=== PATIENT | female | born 1955 | race Caucasian/White ===

== ENCOUNTER 2019-10-30 09:57 | Day surgery (SDC) | payer BC ==
[~2019-10-30 09:57] MED LIST: Buffered Lidocaine 1% SYRIN* 1 ML/SYRINGE INTRADERM ONE; Lactated Ringers 1000 ML Bag* 1,000 ML IV SCH
[2019-10-30] MEDS ORDERED: Buffered Lidocaine 1% SYRIN* 1 ML/SYRINGE INTRADERM ONE (10:22)
[2019-10-30] MEDS ORDERED: ceFAZolin 2 GM PREMIX in ORs 2 GM/50 ML BAG ONE (10:22)
[2019-10-30] MEDS ORDERED: fentaNYL* 50 MCG/ML 5 ML VIAL (250 MCG VIAL) ONE (10:27)
[2019-10-30] MEDS ORDERED: Acetaminophen IV 1GM/100ML * 0 ML ONE (10:27)
[2019-10-30] MEDS ORDERED: Propofol* 10 MG/ML 20 ML BTL ONE (10:27)
[2019-10-30] MEDS ORDERED: Lidocaine 2% PF * 5 ML VIAL ONE (10:27)
[2019-10-30] MEDS ORDERED: Succinylcholine* 20 MG/ML 10 ML VIAL ONE (10:27)
[2019-10-30] MEDS ORDERED: Rocuronium* 10 MG/ML VIAL ONE (10:28)
[2019-10-30] MEDS ORDERED: Midazolam* 1 MG/ML 2 ML VIAL (2 MG) ONE (10:28)
[2019-10-30] MEDS ORDERED: Lidocaine 1% INJ* 10 MG/ML 30 ML SDV ONE (10:58)
[2019-10-30] MEDS ORDERED: Bupivacaine 0.25% EPI 200,000* 30 ML SDV ONE (10:58)
[2019-10-30] MEDS ORDERED: Ondansetron INJ* 2 MG/ML VIAL ONE (12:01)
[2019-10-30] MEDS ORDERED: Glycopyrrolate IV* 0.2 MG/ML 1 ML VIAL ONE (12:01)
[2019-10-30] MEDS ORDERED: Dexamethasone IV* 4 MG/ML 1 ML (4 MG) ONE (12:01)
[2019-10-30] MEDS ORDERED: Ketorolac INJ* 30 MG/ML 1 ML VIAL ONE (12:01)
[2019-10-30] MEDS ORDERED: Neostigmine Methylsulfate* 3 MG/3 ML SYRINGE ONE (12:01)
--- NOTE | 2019-10-30 12:29 | BRIEFOPN ---
Brief Operative/Procedure Note - Operation Details Pre-Op Diagnosis: Epigastric hernia Post-Op Diagnosis: Epigastric hernia Procedures: Open epigastric hernia repair Surgeon(s)/Proceduralists: Dr. Valerio. Assist: BHAVANA Lorenzo Anesthesia: GETA Estimated Blood Loss: <25cc Findings: As above Specimen(s)/Culture(s) Description: None Complications: None
[2019-10-30] MEDS ORDERED: oxyCODONE/Acetamin 5/325 MG* TAB PO PRN (12:35)
[2019-10-30] MEDS ORDERED: HYDROmorphone INJ1* 1 MG/ML SYRINGE IV PRN (12:35)
[2019-10-30] MEDS ORDERED: Naloxone* 0.4 MG/ML 1 ML VIAL IV PRN (12:35)
[2019-10-30] MEDS ORDERED: diPHENhydraMINE IV* 50 MG/ML 1 ml VIAL (BENADRYL) IV PRN (12:35)
[2019-10-30] MEDS ORDERED: DiMENhydriNATE IV* 50 MG/ML VIAL IV PUSH PRN (12:35)
[2019-10-30] MEDS ORDERED: HYDROmorphone INJ1* 1 MG/ML SYRINGE ONE (12:39)
[2019-10-30] MEDS ORDERED: oxyCODONE/Acetamin 5/325 MG* TAB ONE (12:39)
[2019-10-30 13:24] VITALS: BP 124/75
--- NOTE | 2019-10-31 22:18 | OP ---
CC: Primary care doctor * DATE OF OPERATION: 10/30/19 - [facility]. Please note this is a late entry. DATE OF : 51 SURGEON: Dr. Valerio. REDRAWER: BHAVANA Garrido ANESTHESIA: General anesthesia. PRE-OP DIAGNOSIS: Epigastric hernia. POST-OP DIAGNOSIS: Epigastric hernia. OPERATIVE PROCEDURE: Open epigastric hernia repair. ESTIMATED BLOOD LOSS: Minimal. FLUIDS: Minimal crystalloid fluid given. SPECIMENS: None. DRAINS: None. COMPLICATIONS: None. DESCRIPTION OF PROCEDURE: The patient was identified in the preoperative area, marked, consent was signed. She was taken to the operating room and placed on the operating table in supine position. Preoperative antibiotics were given. Sequential devices were placed on bilateral lower extremities. General anesthesia was induced. The patient's abdomen was prepped and draped in a standard surgical fashion. A time-out was performed. An epigastric incision was made. This was deepened down to hernia sac which was cleared off in all directions. We entered into the sac and there was just, what appeared to be, preperitoneal fat. This was ligated as it would not reduce through a very small epigastric defect. We did not pass it off as specimen. The defect itself was approximately 0.5 cm. Review of the lower portions between that and the umbilicus showed that there were no additional defects. We then reapproximated the defect with an interrupted #1 Prolene suture. The wound was then irrigated and reapproximated at skin level with 3-0 Vicryl followed by 4-0 Monocryl subcuticular sutures. Steri-Strips and sterile dressing were applied. The patient tolerated the procedure well, was transferred to PACU in stable condition. [id number]/[facility] #: [id number] [facility]
== END 2019-10-30 13:30 | disposition home or self-care (01) ==
LOC: OR 09:57
PROVIDERS: ATTEND Surgery
DX: K43.9 Ventral hernia without obstruction or gangrene (principal); Z85.850 Personal history of malignant neoplasm of thyroid; E03.8 Other specified hypothyroidism; M32.9 Systemic lupus erythematosus, unspecified; M06.9 Rheumatoid arthritis, unspecified; M79.7 Fibromyalgia; M35.00 Sjogren syndrome, unspecified; F98.8 Other specified behavioral and emotional disorders with onset usually occurring in childhood and adolescence
CPT/HCPCS: A9270-GY; J0330; J0690; J1100; J1170; J1885; J2250; J2405; J2704; J2710; J3010